=== PATIENT | male | born 1995 | race Caucasian/White ===

== ENCOUNTER → 2023-01-23 | Outpatient (CLI) | payer BC | LOC: LAB 19:47 | DX: R30.0 Dysuria (principal) ==

== ENCOUNTER → 2023-01-24 | Outpatient (CLI) | payer BC ==
[2023-01-25 23:07] LABS: CHLAMYDIA TRACHOMATIS, NAA Negative (Negative)
== END ==
LOC: LAB SHORT 07:36 → LAB 07:36
PROVIDERS: Chiropractor
DX: R30.0 Dysuria (principal)
CPT/HCPCS: 87491; 87591